=== PATIENT | female | born 2000 | race African-American/Black ===

== ENCOUNTER 2022-08-31 16:20 | Emergency (ER) | payer MEDICAID ==
[~2022-08-31] VITALS: Ht 167.6 cm; Wt 61.0 kg
[2022-08-31 16:34] VITALS: BP 110/85
[2022-08-31] MEDS ORDERED: PENI500T MT (20:25)
== END 2022-08-31 20:00 | disposition home or self-care (01) ==
LOC: ER 16:25
DX: J02.9 Acute pharyngitis, unspecified (principal)
CPT/HCPCS: 81025; 99283